=== PATIENT | male | born 2000 | race Caucasian/White ===

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

== ENCOUNTER 2024-08-11 10:53 | Emergency (ER) | payer BC ==
[~2024-08-11] VITALS: Ht 185.4 cm; Wt 122.5 kg
[2024-08-11 11:41] VITALS: BP 152/100
== END 2024-08-11 12:49 | disposition home or self-care (01) ==
LOC: ER 10:53
DX: S60.221A Contusion of right hand, initial encounter (principal); X58.XXXA Exposure to other specified factors, initial encounter; Z88.0 Allergy status to penicillin
CPT/HCPCS: 73130; 99283-25

== ENCOUNTER 2025-03-26 07:59 | Emergency (ER) | payer BC ==
[~2025-03-26] VITALS: Ht 188 cm; Wt 95.2 kg
[2025-03-26 08:36] VITALS: BP 121/74
[2025-03-26] MEDS ORDERED: MELA3 PO (08:40)
[2025-03-26] MEDS ORDERED: OZEMPIC1 MG/0.72 SC (08:40)
[2025-03-26] MEDS ORDERED: Naprosyn500 MG PO (09:10)
== END 2025-03-26 09:45 | disposition home or self-care (01) ==
LOC: ER 07:59
DX: M79.601 Pain in right arm (principal); Z88.0 Allergy status to penicillin; Z91.012 Allergy to eggs; Z79.899 Other long term (current) drug therapy
CPT/HCPCS: 99283

== ENCOUNTER 2025-09-09 09:17 | Emergency (ER) | payer BC ==
[~2025-09-09] VITALS: Ht 188 cm; Wt 89.8 kg
[~2025-09-09 09:17] MED LIST changes: +MELA3 PO; +Naprosyn500 MG PO; +OZEMPIC1 MG/0.72 SC
[2025-09-09 09:43] LABS: BASOPHILS ABSOLUTE AUTO 0.02 K/mm3 (0.00-0.23); BASOPHILS PERCENT AUTO 0 % (0-2); EOSINOPHILS ABSOLUTE AUTO 0.18 K/mm3 (0.00-0.68); EOSINOPHILS PERCENT AUTO 2 % (0-6); Hematocrit 48.5 % (37.0-53.0); Hemoglobin 16.4 g/dL (13.5-17.5); IMMATURE GRAN ABSOLUTE AUTO 0.04 K/mm3 (0.00-0.10); IMMATURE GRAN PERCENT AUTO 0 % (0-1); LYMPHOCYTES ABSOLUTE AUTO 2.51 K/mm3 (0.84-5.20); LYMPHOCYTES PERCENT AUTO 28 % (21-46); MONOCYTES ABSOLUTE AUTO 0.52 K/mm3 (0.16-1.47); MONOCYTES PERCENT AUTO 6 % (4-13); Mean Corpuscular HGB Conc 33.8 g/dL (31.5-36.5); Mean Corpuscular Volume 87 fL (80-100); NEUTROPHILS ABSOLUTE AUTO 5.86 K/mm3 (1.96-9.15); NEUTROPHILS PERCENT AUTO 64 % (41-73); NRBC ABSOLUTE 0.00 K/mm3 (0.00-0.02); NRBC Auto 0.0 /100 WBC (0.0-0.2); Platelet Count 264 K/mm3 (150-400); RDW Coefficient Variation 12.1 % (11.7-14.2); RDW Standard Deviation 38.5 fL (35.1-46.3)
[2025-09-09] MEDS ORDERED: DICY20 PO (11:01)
[2025-09-09 11:19] VITALS: BP 139/85
== END 2025-09-09 11:22 | disposition home or self-care (01) ==
LOC: ER 09:17
PROVIDERS: Emergency Medicine
DX: R10.9 Unspecified abdominal pain (principal); Z88.0 Allergy status to penicillin; Z88.1 Allergy status to other antibiotic agents; Z91.0120 Allergy to eggs, unspecified; Z79.899 Other long term (current) drug therapy
CPT/HCPCS: 74177; 83690; 85025; 99284-25; Q9967